=== PATIENT | male | born 1970 | race Caucasian/White ===

== ENCOUNTER 2023-08-20 12:23 | Emergency (ER) | payer MEDICARE, MEDICAID, SELFPAY | END 2023-08-20 14:09 | disposition left against medical advice (07) | LOC: HO.ED 14:02 | PROVIDERS: Emergency Provider Emergency Medicine; PCP Family Medicine | DX: K59.00 Constipation, unspecified (principal); Z53.21 Procedure and treatment not carried out due to patient leaving prior to being seen by health care provider ==

== ENCOUNTER 2024-02-14 17:24 | Emergency (ER) | payer MEDICARE, MEDICAID, SELFPAY ==
--- NOTE | 2024-02-14 17:33 | ED.GENADULT ---
HPI - General Adult General Chief complaint: General Medical Stated complaint: reaction to vitamin pill? dizzy Time Seen by Provider: 02/14/24 17:31 Source: patient and EMS Mode of arrival: EMS Limitations: no limitations History of Present Illness ED Provider: Ofelia Chaudhry PA-C HPI narrative: Patient is a 53 year old assigned male at with a history of vitamin D deficiency presenting to the emergency department today with pain his throat after taking a vitamin D supplement. Patient states that he was prescribed vitamin D and when he attempted to take it, it burned his throat going down. Patient denies any dizziness, lightheadedness, abdominal pain, nausea, vomiting, fever, chills, blurry vision, double vision, loss of vision, chest pain, difficulty breathing, shortness of breath, back pain, night sweats, pain with urination, increased urinary frequency, increased urinary urgency, blood in his urine or stool, syncope or a near syncopal episode, recent trauma or falls, bowel incontinence, bladder incontinence, or any other complaints at this time. Relieving factors: none Exacerbating factors: none Associated symptoms: denies other symptoms Treatments prior to arrival: none Related Data Allergies Allergy/AdvReac Type Severity Reaction Status Date / Time No Known Allergies Allergy Verified 02/14/24 17:41 Review of Systems Constitutional: Constitutional: Reports no additional constitutional complaints, Denies chills, Denies fever(s) and Denies night sweats Eyes: Eyes: Reports no additional eye complaints, Denies blurry vision, Denies change in vision, Denies diplopia, Denies eye discharge, Denies loss of vision and Denies eye pain ENT: Denies dizziness Comments: throat pain Cardiovascular: Cardiovascular: Reports no additional cardiovascular complaints, Denies chest pain, Denies lightheadedness, Denies Loss of Consciousness and Denies dyspnea Respiratory: Respiratory: Reports no additional respiratory complaints and Denies dyspnea Gastrointestinal: Gastrointestinal: Reports no additional gastrointestinal complaints, Denies abdominal pain, Denies melena, Denies hematochezia, Denies change in bowel habits and Denies change in stool character Genitourinary: Genitourinary: Reports no additional male genitourinary complaints, Denies hematuria, Denies oliguria, Denies difficulty urinating, Denies dysuria, Denies urinary frequency, Denies urinary hesitancy, Denies urinary incontinence and Denies urinary urgency Musculoskeletal: Musculoskeletal: Reports no additional musculoskeletal complaints, Denies numbness and Denies tingling Neurologic: Denies dizziness, Denies loss of vision, Denies numbness and Denies tingling Psychiatric: Psychiatric: Reports no additional psychiatric complaints Endocrine: Endocrine: Reports no additional endocrine complaints Hematologic/Lymphatic: Hematologic/Lymphatic: Reports no additional hematologic/lymphatic complaints Allergic/Immunologic: Allergic/Immunologic: Reports no additional allergic/immunologic complaints PMFSH Past Medical History Attestation statement: The following information was validated with the patient. Source: old records reviewed and nursing notes reviewed Social History Social History Advance Directives: No Advance Directives Information Provided: No Physical Exam ED Vital Signs: Vital Signs - 24 hr 02/14/24 17:36 Temperature 98.9 F Pulse Rate 85 Respiratory Rate 20 Blood Pressure 143/84 H Pulse Oximetry 98 Oxygen Delivery Method Room Air BMI result Body Mass Index 32.9 Const General: cooperative, no acute distress, alert and awake Nutritional Appearance: well nourished Orientation/consciousness: patient oriented x3 Limitations: no limitations HENMT Head: Yes normal to inspection and Yes atraumatic Ears: hearing grossly normal bilaterally and external ears normal General nose exam: Normal external nose present, no nasal discharge noted and no epistaxis Face and sinus: Yes normal facial exam, No abrasion and No laceration Mouth: Normal oral and palatal mucosa present, no drooling and no muffled voice Eyes General: appearance normal, both eyes and all related structures Periorbital: periorbital findings normal Eyelids: Yes eyelids normal Conjunctivae: conjunctivae normal Pupils: Equal, round and reactive pupils present EOM: EOMs intact bilaterally Neck Neck: Yes normal visual inspection, Yes full ROM and Yes no lymphadenopathy Chest Chest palpation & inspection: normal inspection of the chest Resp Effort & Inspection: normal respiratory effort and able to speak in complete sentences GI Inspection: Yes normal to inspection Neuro General: patient oriented x3 and moves all extremities Cranial nerves: Yes Equal, round and reactive pupils present Cognition (Neuro): normal cognition Extrem General: Yes normal to inspection, Yes full ROM and Yes capillary refill normal Psych Appearance: grossly normal Mental Status: mental status grossly normal Affect: normal affect Attitude: cooperative Thought process: Normal thought process present Thought content: Normal thought content present Insight: Good insight present (Psych) Medications Administered Discontinued Medications Generic Name Dose Route Start Last Admin Trade Name Corey PRN Reason Stop Dose Admin Al Hydroxide/Mg Hydroxide 15 ml 02/14/24 17:39 02/14/24 18:06 Magnesium Hydrox/Alum Hydrox 30 Ml Oral.Susp PO 02/14/24 17:40 15 ml ONCE ONE Administration Pantoprazole Sodium 40 mg 02/14/24 17:39 02/14/24 18:07 Pantoprazole Sodium 40 Mg/10 Ml Vial IVPUSH 02/14/24 17:40 40 mg ONCE ONE Administration Medical Decision Making Medical Decision Making [facility] Narrative: Patient is a 53 year old assigned male at with a history of vitamin D deficiency presenting to the emergency department today with throat pain after taking a vitamin D supplement. Patient's physical exam was unremarkable. Patient's blood work showed a sodium of 126 but was otherwise unremarkable. I explained my physical exam findings as well as all test results to the patient. I answered all questions asked by the patient. Patient confirmed that he does drink a lot of water and nothing else. I explained to the patient that he needs to start replacing some of his water with either water containing electrolytes or an electrolyte containing beverage. I stressed the importance of the patient taking his medication as directed (either prescribed or as the over the counter packaging recommends). I stressed the importance of the patient following up with his primary care provider. I stressed the importance of the patient returning to the emergency department immediately if his symptoms were to worsen or if he were to develop any dizziness, shortness of breath, difficulty breathing, chest pain, blurry vision, loss of vision, nausea, vomiting, abdominal pain, fever, chills, back pain, or any other complaints. Patient verbalized agreement and understanding with this treatment plan and discharge. Differential Diagnosis Differential Diagnoses: The differential diagnosis associated with the presentation includes Pill esophagitis Hyponatremia Admission/Observation Consideration of admission/observation: Escalation of care including admission/observation considered Patient would have been admitted to the hospital had his work up had any findings where hospital admission was appropriate and his clinical presentation warranted hospital admission. Lab Data [facility] Lab Attestation statement: I reviewed the patient's lab results. My interpretation of these results are in the [facility] Rationale portion of this note. 02/14/24 18:22 02/14/24 18:22 Labs: Lab Results 02/14/24 Range/Units 18:22 WBC 9.1 (4.8-10.8) X10*3/uL RBC 4.56 L (4.60-5.80) X10*6/uL Hgb 12.7 L (14.0-18.0) g/dl Hct 36.3 L (42.0-52.0) % MCV 79.6 L (80.0-98.0) fL MCH 27.9 (27.0-33.0) pg MCHC 35.0 (31.0-36.0) g/dl RDW 13.6 (11.0-16.0) % Plt Count 381 (160-400) X10*3/uL MPV 8.8 L (9.4-12.4) fL Immature Gran % (Auto) 0.3 (0.0-0.4) % Neut % (Auto) 56.9 (45-73) % Lymph % (Auto) 33.6 (20-40) % [place] % (Auto) 7.5 (2-11) % Eos % (Auto) 1.1 (0-4) % Baso % (Auto) 0.6 (0-2) % Lymph # (Auto) 3.1 (1.2-4.9) X10*3/uL [place] # (Auto) 0.7 (0.1-1.2) X10*3/uL Eos # (Auto) 0.1 (0.0-0.4) X10*3/uL Baso # (Auto) 0.1 (0.0-0.2) X10*3/uL Abs Immat Gran (auto) 0.03 (0.00-0.03) X10*3/uL Absolute Neuts (auto) 5.2 (2.0-8.3) x10*3/uL Absolute Nucleated RBC 0.000 (0.0-0.012) X10*3/uL Nucleated RBC % (auto) 0.0 (0.0-0.2) /100WBC Sodium 126 L (135-145) mmol/L Potassium 3.8 (3.3-5.1) mmol/L Chloride 94 L (96-108) mmol/L Carbon Dioxide 25 (22-29) mmol/L Anion Gap 11 L (12-20) BUN 5 L (9-16) mg/dL Creatinine 0.74 (0.5-1.4) mg/dL Estim Creat Clear Calc 108.0 Estimated GFR > 60 Random Glucose 102 (60-115) mg/dL Calcium 10.1 (8.4-10.2) mg/dL Magnesium 1.7 (1.6-2.6) mg/dL Total Bilirubin 0.4 (0.0-1.0) mg/dL AST 27 (5-37) U/L ALT 29 (0-40) U/L Alkaline Phosphatase 69 (39-117) U/L Total Protein 7.2 (6.5-8.0) g/dL Albumin 4.3 (3.5-5.0) g/dL Independent Historian Clinical information obtained from an independent historian. History obtained from or confirmed by: EMS (EMS provided additional history and confirmed the history provided by the patient.) Discharge Plan Discharge Clinical Impression: Pill esophagitis, Acute hyponatremia Patient Disposition: Home, Self-Care Instructions: Hyponatremia (ED), Liquids and Hydration for Athletes (ED), Esophagitis (ED) Additional Instructions: You should follow up with your primary care provider and repeat your sodium level. Remember our discussion about splitting your water intake with electrolyte containing fluids. Follow up with your primary care provider. Return to the emergency department immediately if your symptoms worsen or if you develop any dizziness, shortness of breath, difficulty breathing, chest pain, blurry vision, loss of vision, nausea, vomiting, abdominal pain, fever, chills, back pain, or any other complaints. Referrals: Des Saab MD [Primary Care Provider] - Print Language: Egyptian
[2024-02-14 17:35] VITALS: BP 160/92; PULSE 80; O2SAT 99
[2024-02-14 17:36] VITALS: BP 143/84; PULSE 85; RESP 20; TEMP 37.2; O2SAT 98; BMI 32.9
[2024-02-14] MEDS: Magnesium Hydrox/Alum Hydrox 30 ML ORAL.SUSP 15 ML PO (18:06)
[2024-02-14] MEDS: Pantoprazole Sodium 40 MG/10 ML VIAL IVPUSH (18:07)
[2024-02-14 18:27] LABS: MANUAL DIFF FLAG NO
[2024-02-14 18:28] LABS: Basophils Absolute Auto 0.1 X10*3/uL (0.0-0.2); Basophils Percent Auto 0.6 % (0-2); Eosinophils Absolute Auto 0.1 X10*3/uL (0.0-0.4); Eosinophils Percent Auto 1.1 % (0-4); Hematocrit 36.3 % (42.0-52.0); Hemoglobin 12.7 g/dl (14.0-18.0); Imm Gran Abs Auto 0.03 X10*3/uL (0.00-0.03); Imm Gran Pct Auto 0.3 % (0.0-0.4); Lymphocytes Absolute Auto 3.1 X10*3/uL (1.2-4.9); Lymphocytes Percent Auto 33.6 % (20-40); Mean Corpuscular Hemoglobin 27.9 pg (27.0-33.0); Mean Corpuscular Volume 79.6 fL (80.0-98.0); Mean Platelet Volume 8.8 fL (9.4-12.4); Monocytes Absolute Auto 0.7 X10*3/uL (0.1-1.2); Monocytes Percent Auto 7.5 % (2-11); Neutrophils Absolute Auto 5.2 x10*3/uL (2.0-8.3); Neutrophils Percent Auto 56.9 % (45-73); Platelet Count 381 X10*3/uL (160-400); Red Blood Count 4.56 X10*6/uL (4.60-5.80); Red Cell Distribution Width 13.6 % (11.0-16.0); White Blood Count 9.1 X10*3/uL (4.8-10.8)
[2024-02-14 18:43] LABS: Alanine Aminotransferase 29 U/L (0-40); Albumin Level 4.3 g/dL (3.5-5.0); Alkaline Phosphatase 69 U/L (39-117); Anion Gap 11 (12-20); Aspartate Amino Transferase 27 U/L (5-37); Bilirubin Total 0.4 mg/dL (0.0-1.0); Blood Urea Nitrogen 5 mg/dL (9-16); Calcium 10.1 mg/dL (8.4-10.2); Carbon Dioxide 25 mmol/L (22-29); Chloride 94 mmol/L (96-108); Estimated Glomerular Filt Rate > 60; Glucose Random 102 mg/dL (60-115); Magnesium 1.7 mg/dL (1.6-2.6); Potassium 3.8 mmol/L (3.3-5.1); Sodium 126 mmol/L (135-145); Total Protein 7.2 g/dL (6.5-8.0)
[2024-02-14] MEDS: 0.9 % Sodium Chloride 1,000 ML 999 ML IV (19:30)
--- NOTE | 2024-02-14 21:28 | PC.NURSE ---
pt right arm 20g blown iv. new iv to left ac 20g and ivf infusing.
[2024-02-14 22:32] VITALS: BP 143/84; PULSE 85; RESP 20; TEMP 37.2; O2SAT 98
== END 2024-02-14 22:33 | disposition home or self-care (01) ==
PROVIDERS: Physician Assistant Medical; Emergency Provider Emergency Medicine; PCP Family Medicine
DX: K20.80 Other esophagitis without bleeding (principal); E87.1 Hypo-osmolality and hyponatremia; E55.9 Vitamin D deficiency, unspecified
CPT/HCPCS: 36415; 80053; 83735; 85025; 96374; 99284; J2470

== ENCOUNTER 2024-05-28 19:02 | Inpatient (IN) | payer MEDICARE, MEDICAID, SELFPAY ==
[2024-05-28 19:08] VITALS: BP 141/81; PULSE 113; O2SAT 95
[2024-05-28 19:39] VITALS: BP 157/94; PULSE 107; RESP 18; TEMP 36.8; O2SAT 98; BMI 32.9
[2024-05-28 20:01] LABS: MANUAL DIFF FLAG NO
[2024-05-28 20:07] LABS: Basophils Percent Auto 0.5 % (0-2); Eosinophils Absolute Auto 0.1 X10*3/uL (0.0-0.4); Eosinophils Percent Auto 1.8 % (0-4); Hematocrit 41.6 % (42.0-52.0); Hemoglobin 13.8 g/dl (14.0-18.0); Imm Gran Abs Auto 0.02 X10*3/uL (0.00-0.03); Imm Gran Pct Auto 0.3 % (0.0-0.4); Lymphocytes Absolute Auto 3.1 X10*3/uL (1.2-4.9); Lymphocytes Percent Auto 39.7 % (20-40); Mean Corpuscular HGB Conc 33.2 g/dl (31.0-36.0); Mean Corpuscular Hemoglobin 27.6 pg (27.0-33.0); Mean Corpuscular Volume 83.2 fL (80.0-98.0); Mean Platelet Volume 9.4 fL (9.4-12.4); Monocytes Absolute Auto 0.6 X10*3/uL (0.1-1.2); Monocytes Percent Auto 7.9 % (2-11); Neutrophils Absolute Auto 3.9 x10*3/uL (2.0-8.3); Neutrophils Percent Auto 49.8 % (45-73); Platelet Count 361 X10*3/uL (160-400); Red Cell Distribution Width 13.2 % (11.0-16.0); White Blood Count 7.9 X10*3/uL (4.8-10.8)
[2024-05-28 20:15] LABS: Amphetamine Screen Urine Not Detected (Not Detect); Barbiturates, Urine Not Detected (Not Detect); Benzodiazepines Screen Urine Not Detected (Not Detect); Buprenorphine Scr Not Detected (Not Detect); Cannabinoid Screen Urine Not Detected (Not Detect); Cocaine Screen Urine Not Detected (Not Detect); Fentanyl, urine Not Detected (Not Detect); Methadone Screen, Urine Not Detected (Not Detect); Opiate Screen Urine Not Detected (Not Detect); Oxycodone Screen Urine Not Detected (Not Detect); Phencyclidine Screen Urine Not Detected (Not Detect)
[2024-05-28 20:24] LABS: Ethanol < 10 mg/dL
[2024-05-28 20:28] LABS: Acetaminophen LAB < 3 mcg/mL (<30); Salicylate < 5.0 mg/dL (15-30)
[2024-05-28 20:34] LABS: Alanine Aminotransferase 36 U/L (0-40); Albumin Level 4.7 g/dL (3.5-5.0); Alkaline Phosphatase 79 U/L (39-117); Aspartate Amino Transferase 32 U/L (5-37); Bilirubin Total 0.3 mg/dL (0.0-1.0); Blood Urea Nitrogen 13 mg/dL (9-16); Creatinine Clr Calc Pharmacy 91.9; Estimated Glomerular Filt Rate > 60; Glucose Random 90 mg/dL (60-115); Total Protein 7.9 g/dL (6.5-8.0)
[2024-05-28 20:36] LABS: Anion Gap 15 (12-20); Carbon Dioxide 26 mmol/L (22-29); Chloride 100 mmol/L (96-108); Potassium 3.9 mmol/L (3.3-5.1); Sodium 137 mmol/L (135-145)
[2024-05-28 20:40] LABS: Influenza A PCR NEGATIVE (Negative); Influenza B PCR NEGATIVE (Negative); Resp Syncy Virus RNA Qual PCR NEGATIVE (Negative); SARS COV2 PCR INHOUSE NEGATIVE (Negative)
[2024-05-29] MEDS: risperiDONE 1 MG TABLET PO ×3 (01:46→20:48)
[2024-05-29] MEDS: Melatonin 3 MG TABLET PO ×2 (01:46→20:48)
--- NOTE | 2024-05-29 04:55 | ED_ITS ---
HPI - General Adult General Chief complaint: Psychiatric Symptoms Stated complaint: section 12, hi pt is calm and cooperative Time Seen by Provider: 05/28/24 19:27 Source: patient Limitations: no limitations History of Present Illness ED Provider: Liv Rodriguez PA-C HPI narrative: 53-year-old male with a history of schizophrenia with paranoid delusion presents via section 12 with a HI. Patient was having a session with his therapist, he made it, that he was ?cruising for shooting?. The therapist in turn called the police department. The patient was also verbalizing paranoid thoughts it was neighbors were following him. Patient denies SI. Related Data Home Medications ?Medication ?Instructions ?Recorded ?Confirmed cholecalciferol (vitamin D3) 50 50 mcg PO DAILY 05/28/24 05/28/24 mcg (2,000 unit) capsule melatonin 3 mg tablet 3 mg PO BEDTIME 05/28/24 05/28/24 risperidone 1 mg tablet 1 mg PO BID 05/28/24 05/28/24 Allergies Allergy/AdvReac Type Severity Reaction Status Date / Time No Known Allergies Allergy Verified 05/28/24 19:45 Review of Systems 2 Review of Systems: Yes all other systems are reviewed and are negative Constitutional: Constitutional: Denies fatigue and Denies fever(s) Cardiovascular: Cardiovascular: Denies chest pain and Denies dyspnea Respiratory: Respiratory: Denies cough and Denies dyspnea Gastrointestinal: Gastrointestinal: Denies abdominal pain Endocrine: Endocrine: Denies fatigue PMFSH Past Medical History Attestation statement: The following information was validated with the patient. Social History Social History Household Members: None Housing: Condominium Do you presently have visiting nurse or other home services: No Alcohol intake: never Patient Tobacco Use Status: Never used Tobacco Use of substances other than those prescribed or required for medical reasons: No Currently Displaying Signs/Symptoms of Drug Intoxication Withdrawal: No Have you been hit, kicked, punched, or otherwise hurt by someone within the past year? If so, by whom?: No Do you feel safe in your current relationship?: No Current Relationship Is there a partner from a previous relationship who is making you feel unsafe now?: No Are you made to feel afraid or neglected: No Advance Directives: No Advance Directives Information Provided: No Do you have thoughts of harming others: None Do you have a plan to hurt others: No Plan Recently lost weight without trying: No Eating poorly because of decreased appetite: No Nutrition Risks: No Nutritional Risk Poor oral hygiene: No Physical Exam ED Vital Signs: Vital Signs - 24 hr 05/28/24 19:39 Temperature 98.2 F Pulse Rate 107 H Respiratory Rate 18 Blood Pressure 157/94 H Pulse Oximetry 98 Oxygen Delivery Method Room Air BMI result Body Mass Index 32.9 Const Other: Alert Orientation/consciousness: patient oriented x3 Resp Effort & Inspection: normal respiratory effort Cardio Other: Normal peripheral perfusion Skin Other: Warm dry no rash Neuro General: patient oriented x3, gait normal, no focal motor deficits and CN's II- XI intact bilaterally Psych Other: Cooperative here in the emergency room Course Reevaluation(s) Reevaluation #1: Time: 05:00 Date: 05/29/24 Provider: ILYA Suárez Patient in physician observation for psychiatric evaluation.? No acute events reported overnight. No current complaints. VS stable.? Patient is in bed search status/pending CARE team evaluation. Will continue to monitor. Reevaluation #2: Time: 20:35 Date: 05/30/24 Provider: Nikita Polanco MD Physician observation ended on 05/29/2024 at 12:18 hours. the patient was evaluated by the care team and was felt that the patient would benefit from inpatient care. The patient was admitted to the [facility] [place] psychiatric service by nurse practitioner Ese Dawn for further in-patient treatment. Medications Administered Generic Name Dose Route Start Last Admin Trade Name Freq PRN Reason Stop Dose Admin Magnesium Hydroxide 30 ml 05/29/24 15:51 05/30/24 08:39 Milk Of Magnesia 30 Ml Oral.Susp PO 30 ml DAILY PRN Administration Constipation Melatonin 3 mg 05/29/24 01:15 05/29/24 20:48 Melatonin 3 Mg Tablet PO 3 mg BEDTIME JOLENE Administration Nicotine 21 mg 05/30/24 09:00 05/30/24 09:54 Nicotine 21 Mg Patch.Td24 TRANSDERMA Not Given DAILY JOLENE Risperidone 2 mg 05/30/24 21:00 05/30/24 20:18 Risperidone 2 Mg Tablet PO 2 mg BEDTIME JOLENE Administration Vitamin D 50 mcg 05/29/24 09:00 05/30/24 08:39 Cholecalciferol (Vitamin D3) 25 Mcg Tablet PO 50 mcg DAILY JOLENE Administration Discontinued Medications Generic Name Dose Route Start Last Admin Trade Name Corey PRN Reason Stop Dose Admin Lorazepam 2 mg 05/29/24 11:55 05/29/24 12:00 Lorazepam 1 Mg Tablet PO 05/29/24 11:56 2 mg ONCE STA Administration Risperidone 1 mg 05/29/24 01:15 05/30/24 08:38 Risperidone 1 Mg Tablet PO 1 mg BID JOLENE Administration Medical Decision Making Medical Decision Making MDM Narrative: 53-year-old male with a history of schizophrenia with paranoid delusion presents via section 12 with a HI. Patient was having a session with his therapist, he made it, that he was ?cruising for shooting?. The therapist in turn called the police department. The patient was also verbalizing paranoid thoughts it was neighbors were following him. Patient denies SI. Problem: Psychiatric illness History: Per patient I have considered the following differential diagnoses: SI, HI, decompensated psychiatric illness, drug/alcohol intoxication Plan: Screening labs including serum ethanol and U tox were obtained. I spoke with the member of the care team, they are unable to obtain collateral information at this time, the patient will be held over for further assessment in the morning. I have independently reviewed the following tests: Labs: No leukocytosis, not anemic, no electrolyte abnormality noted, U tox negative, ethanol negative Lab Data 05/28/24 19:53 05/29/24 18:32 Labs: Lab Results 05/28/24 05/28/24 Range/Units 19:52 19:53 WBC 7.9 (4.8-10.8) X10*3/uL RBC 5.00 (4.60-5.80) X10*6/uL Hgb 13.8 L (14.0-18.0) g/dl Hct 41.6 L (42.0-52.0) % MCV 83.2 (80.0-98.0) fL MCH 27.6 (27.0-33.0) pg MCHC 33.2 (31.0-36.0) g/dl RDW 13.2 (11.0-16.0) % Plt Count 361 (160-400) X10*3/uL MPV 9.4 (9.4-12.4) fL Immature Gran % (Auto) 0.3 (0.0-0.4) % Neut % (Auto) 49.8 (45-73) % Lymph % (Auto) 39.7 (20-40) % [place] % (Auto) 7.9 (2-11) % Eos % (Auto) 1.8 (0-4) % Baso % (Auto) 0.5 (0-2) % Lymph # (Auto) 3.1 (1.2-4.9) X10*3/uL [place] # (Auto) 0.6 (0.1-1.2) X10*3/uL Eos # (Auto) 0.1 (0.0-0.4) X10*3/uL Baso # (Auto) 0.0 (0.0-0.2) X10*3/uL Abs Immat Gran (auto) 0.02 (0.00-0.03) X10*3/uL Absolute Neuts (auto) 3.9 (2.0-8.3) x10*3/uL Absolute Nucleated RBC 0.000 (0.0-0.012) X10*3/uL Nucleated RBC % (auto) 0.0 (0.0-0.2) /100WBC Sodium 137 (135-145) mmol/L Potassium 3.9 (3.3-5.1) mmol/L Chloride 100 (96-108) mmol/L Carbon Dioxide 26 (22-29) mmol/L Anion Gap 15 (12-20) BUN 13 (9-16) mg/dL Creatinine 0.87 (0.5-1.4) mg/dL Estim Creat Clear Calc 91.9 Estimated GFR > 60 Random Glucose 90 (60-115) mg/dL Calcium 11.0 H D (8.4-10.2) mg/dL Magnesium 2.0 (1.6-2.6) mg/dL Total Bilirubin 0.3 (0.0-1.0) mg/dL AST 32 (5-37) U/L ALT 36 (0-40) U/L Alkaline Phosphatase 79 (39-117) U/L Total Protein 7.9 (6.5-8.0) g/dL Albumin 4.7 (3.5-5.0) g/dL Salicylates < 5.0 L (15-30) mg/dL Urine Opiates Screen Not Detected (Not Detect) Ur Buprenorphine Scrn Not Detected (Not Detect) ng/mL Ur Oxycodone Screen Not Detected (Not Detect) ng/mL Urine Methadone Screen Not Detected (Not Detect) ng/mL Urine Fentanyl Screen Not Detected (Not Detect) Acetaminophen < 3 (<30) mcg/mL Ur Barbiturates Screen Not Detected (Not Detect) Ur Phencyclidine Scrn Not Detected (Not Detect) Ur Amphetamines Screen Not Detected (Not Detect) U Benzodiazepines Scrn Not Detected (Not Detect) Urine Cocaine Screen Not Detected (Not Detect) U Marijuana (THC) Screen Not Detected (Not Detect) Ethyl Alcohol < 10 mg/dL Influenza Type A (PCR) NEGATIVE (Negative) Influenza Type B (PCR) NEGATIVE (Negative) RSV RNA Qual (PCR) NEGATIVE (Negative) SARS-CoV-2 RNA (RT-PCR) NEGATIVE (Negative) Discharge Plan Discharge Clinical Impression: Homicidal ideation Patient Disposition: Admitted As Inpatient Interventions: Admission Worksheet (ED) Last Done: 05/29/24 14:18 Discharge Date/Time: 05/29/24 14:49
[2024-05-29 05:12] VITALS: BP 114/82; PULSE 71; RESP 16; TEMP 36.3; O2SAT 98
--- NOTE | 2024-05-29 06:17 | MHC.CARE ---
Addendum entered by ALFONSO Payan 05/29/24 06:53: OP therapist contact information is as follows: Salvador Burgess: [phone] Original Note: Pt presented to [facility] on a section 12 issued by [facility] Co response at the request of pt?s OP therapist. Per [facility] co response, pt endorsed having thoughts do harm others, specifically his neighbor, and made statements alluding to wanting to harm his neighbor utilizing a fire arm and when asked if he had access to a firearm at this time he was unable to confirm or deny. ?Per [facility] documentation, co response, accompanied by the [place] police, attempted to make contact with the pt due to reported concern from pts current outpatient therapist, however initially were unsuccessful.?[place] [employer] was contacted for further information and dispatch noted that pt made statements regarding wanting to use a firearm to harm his neighbor and although did not answer the door on the first attempt to make contact with him he did open the door for the police when they went back to the apartment for a second time. Dispatch noted that he was calm and cooperative with PD and was sent to [facility] for further evaluation without incident. Dispatch noted that prior to today that [place]ilan had contact with him in February when he was sectioned to [facility] ED. She stated that to their knowledge he does not have access to firearms within the home and they have not have much involvement with him in the past.? Pt spoke briefly with Care Team while waiting to be seen by the medical attending and fully medically cleared and remained in behavioral control and cooperative. Pt reported ongoing issues with his neighbor and appeared paranoid at times and also presented with a delusional thought process. He reported that he believes someone put speakers in the floors and ceilings and would also purposely hack his computer to make it difficult for pt to work. He reported that he can hear his neighbors voice though the light fixtures and believes that they are listening into his therapy sessions at this time. Pt reported vaguely that he has seen his therapist for several years and stated he utilizes Dr. King from [facility] as a medication prescriber. ?He reported that he is also supported by [facility] and stated that he has [facility] ACCS for additional wrap around services at this time. He indicated that his current ACCS worker is on vacation and indicated ?someone else has been filling in while she is away.?Due to pts altered mental status at times he appeared to be a poor historian however he was able to be redirected and denied having any access to firearms at this time and stated: i'm actually very against stuff like that. Pt noted that he did not take his medication this morning and indicated that he decided himself to take the an additional dose of the medication to make it more effective. ?It is to be noted he disclosed to ed staff upon arrival that his current prescribed medications are to be taken on an as needed basis therefore there is concern for medication noncompliance as evidence of his disorganized thought process.? A full care team assessment will occur secondary to being seen and cleared medically and further follow up will occur as needed moving forwards.?
[2024-05-29] MEDS: Cholecalciferol (Vitamin D3) 25 MCG TABLET 50 MCG PO (07:28)
--- NOTE | 2024-05-29 11:03 | ECG_ITS ---
Test Reason : R/O PROLONGED QT Blood Pressure : */* mmHG Vent. Rate : 78 BPM Atrial Rate : 78 BPM P-R Int : 158 ms QRS Dur : 92 ms QT Int : 338 ms P-R-T Axes : 62 87 48 degrees QTcB Int : 385 ms Normal sinus rhythm Normal ECG No previous ECGs available Referred By: Liv Rodriguez Electronically Signed By: DESI BARR MD
[2024-05-29] MEDS: LORazepam 1 MG TABLET 2 MG PO (12:00)
--- NOTE | 2024-05-29 17:22 | PC.ADMIT ---
Riley is a 53 y/o male that was admitted to [facility]? at 1445 from the Pod on CV for treatment of delusional d/o.?Pt then signed a 3day. Precipitants of admission include increased paranoia and thoughts of HI towards his neighbors. Per Crisis evaluation pt believes that his neighbors are poisoning him and poison is coming through the vents in the ceiling. Pt verbalized his want to cause harm towards the neighbors. He believes that voices are coming out of the lights.? Pt currently lives alone in an apartment.? Pt stated ?I am here because of my neighbors. They are sending me things through the vents. It smells like ammonia. Sometimes there is dust, the dust is covering me. I am still covered in this white paste right now. They have access into my briceno.? ?I live alone and I hear voices when I?m there which is concerning because I live alone.? Pt was calm and cooperative.? Affect is blunted.? Pt reported feeling ?confused? and unable to recall TW name after being told multiple times. Stated from the ?Ativan?.? Pt reported thought process is slow.? Pt denied SI or HI at this time. Pt reported that they would be able to come to a staff member if thoughts occurred.? Poor sleep and appetite. No recent weight loss.? Tox Screen negative. Pt denied etoh, substance or tobacco use.? No physical complaints. Hx of emotional trauma but did not disclose further.? Hx of IPLOC at [facility] in February 2024. Current [facility] provider and therapist, self reported takes medication 5 days a week .? Pt was placed on 15 checks for safety.? Skin check complete, unremarkable.
[2024-05-29 17:49] VITALS: BP 138/80; PULSE 104; RESP 16; TEMP 36.6; O2SAT 99; BMI 32.3
[2024-05-29 19:40] VITALS: BP 118/72; PULSE 99; RESP 16; TEMP 36.6; O2SAT 100
[2024-05-29 19:47] LABS: Alanine Aminotransferase 34 U/L (0-40); Albumin Level 4.6 g/dL (3.5-5.0); Alkaline Phosphatase 76 U/L (39-117); Anion Gap 12 (12-20); Aspartate Amino Transferase 25 U/L (5-37); Bilirubin Total 0.3 mg/dL (0.0-1.0); Blood Urea Nitrogen 10 mg/dL (9-16); Calcium 11.2 mg/dL (8.4-10.2); Carbon Dioxide 29 mmol/L (22-29); Chloride 102 mmol/L (96-108); Creatinine Clr Calc Pharmacy 90.9; Estimated Glomerular Filt Rate > 60; Glucose Random 115 mg/dL (60-115); Potassium 4.1 mmol/L (3.3-5.1); Sodium 139 mmol/L (135-145); Total Protein 7.9 g/dL (6.5-8.0)
[2024-05-30 08:00] VITALS: BP 128/88; PULSE 85; RESP 14; TEMP 36.9; O2SAT 98
[2024-05-30] MEDS: risperiDONE 1 MG TABLET PO (08:38)
[2024-05-30] MEDS: Cholecalciferol (Vitamin D3) 25 MCG TABLET 50 MCG PO (08:39)
[2024-05-30] MEDS: Milk of Magnesia 30 ML ORAL.SUSP PO (08:39)
--- NOTE | 2024-05-30 10:46 | P.HPPS_ITS ---
HPI Date of Service: 05/30/24 Chief Complaint: crisis Sources of Information: patient interviewed, chart reviewed and crisis/core team assessment reviewed HPI Subjective Notes: Ruiz Warning, Conditional Voluntary and 3 Day Narrative: Mr. Jewell is a 53 year-old male with hx of schizophrenia who was brought via EMS on sect 12a from therapist office from [facility] after he reported homicidal ideation towards neighbors who he believes have been talking to him through vents and outlets of his apartment, poisoning the air with chemical substances. In the ED, his utox was negative. On the unit, pt presents as somewhat guarded. He reports he has been harassed by his neighbors for at least 2 years but it has been going on for several more years. He reports neighbor upstairs and the neighbor diagonal from him are sending him messages through the TV. He reports he also hears voices coming from light fixtures and outlets. He reports he has never seen neighbors coming to him and threaten him. He also notes he does not know why neighbors would try to harm him. He reports he works from home and is constantly hearing voices. He reports a month ago he was so desperate that he felt suicidal but denied any plan or intent to harm himself. He reports recently he worries that neighbors are trying to harm him. He reported to the nurse on admission that he had a white power on him which nurse could not see but he insisted was all over his body. He reports he is getting tired and thought of taking matter into his own hand, but clarifies that his plan is to contact the police. He reports he stopped talking with family members as they do not believe him. He reports he does not trust many people but sees his outpatient therapist, Salvador Burgess twice a week for several years. He reports he sees psychiatrist, Dr Lincoln King. He report she currently takes risperidone but has not agree to increase the dose as he worries about side effects. He reports poor sleep. He reports he is not able to shower at home because it is in the bathroom where he suspects poison is coming out of the vents and showers. He reports hear in the hospital he has also heard voices of neighbors and worries that they may try to get him here. He denies hx of suicide attempts. He also denies hx of violence towards others. Past Psychiatric History: Inpt: j[facility]ie 02/2024 OP: [facility] Dr. Lincoln Gaming, therapist Salvador Burgess. Past medication trials: seroquel, abilify, risperidone No hx of suicide attempts. Medical Evaluation [facility] Family History: denies Social History: Pt was born in [place]. He has never nor he has children. He completed BA in psychology and MA in computer science. 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 He has siblings with whom he has limited contact now. Substance History: denies Trauma History: none reported Diagnostics Vital Signs (24Hr): Vital Signs - 24 hr 05/29/24 17:49 05/29/24 19:40 05/30/24 08:00 Temperature 97.9 F 97.8 F 98.5 F Pulse Rate 104 H 99 85 Respiratory Rate 16 16 14 Blood Pressure 138/80 118/72 128/88 Pulse Oximetry 99 100 98 Oxygen Delivery Method Room Air Room Air Room Air BMI result Body Mass Index 32.3 Labs 05/28/24 19:53 05/29/24 18:32 Labs: Laboratory Results - last 48 hr 05/28/24 05/28/24 05/29/24 19:52 19:53 18:32 WBC 7.9 RBC 5.00 Hgb 13.8 L Hct 41.6 L MCV 83.2 MCH 27.6 MCHC 33.2 RDW 13.2 Plt Count 361 MPV 9.4 Immature Gran % (Auto) 0.3 Neut % (Auto) 49.8 Lymph % (Auto) 39.7 Carter % (Auto) 7.9 Eos % (Auto) 1.8 Baso % (Auto) 0.5 Lymph # (Auto) 3.1 Carter # (Auto) 0.6 Eos # (Auto) 0.1 Baso # (Auto) 0.0 Abs Immat Gran (auto) 0.02 Absolute Neuts (auto) 3.9 Absolute Nucleated RBC 0.000 Nucleated RBC % (auto) 0.0 Sodium 137 139 Potassium 3.9 4.1 Chloride 100 102 Carbon Dioxide 26 29 Anion Gap 15 12 BUN 13 10 Creatinine 0.87 0.87 Estim Creat Clear Calc 91.9 90.9 Estimated GFR > 60 > 60 Random Glucose 90 115 Calcium 11.0 H D 11.2 H Magnesium 2.0 Total Bilirubin 0.3 0.3 AST 32 25 ALT 36 34 Alkaline Phosphatase 79 76 Total Protein 7.9 7.9 Albumin 4.7 4.6 Salicylates < 5.0 L Urine Opiates Screen Not Detected Ur Buprenorphine Scrn Not Detected Ur Oxycodone Screen Not Detected Urine Methadone Screen Not Detected Urine Fentanyl Screen Not Detected Acetaminophen < 3 Ur Barbiturates Screen Not Detected Ur Phencyclidine Scrn Not Detected Ur Amphetamines Screen Not Detected U Benzodiazepines Scrn Not Detected Urine Cocaine Screen Not Detected U Marijuana (THC) Screen Not Detected Ethyl Alcohol < 10 Influenza Type A (PCR) NEGATIVE Influenza Type B (PCR) NEGATIVE RSV RNA Qual (PCR) NEGATIVE SARS-CoV-2 RNA (RT-PCR) NEGATIVE Meds/Allergies Meds Home Medications ?Medication ?Instructions ?Recorded ?Confirmed ?Type cholecalciferol (vitamin D3) 50 50 mcg PO DAILY 05/28/24 05/28/24 History mcg (2,000 unit) capsule melatonin 3 mg tablet 3 mg PO BEDTIME 05/28/24 05/28/24 History risperidone 1 mg tablet 1 mg PO BID 05/28/24 05/28/24 History Allergies Allergies Allergy/AdvReac Type Severity Reaction Status Date / Time No Known Allergies Allergy Verified 05/28/24 19:45 Mental Status Exam Mental Status Exam Narrative: Appearance: wearing hospital gown, fair hygiene, in NAD Behavior: cooperative, initially guarded Psychomotor: no agitation or retardation noted Speech: clear, normal rate/rhythm/volume, spontaneous TP: linear TC: paranoid delusions Mood: better Affect: suspicious Si: denies HI: denies VH/AH: hearing voices of neighbors, sees things on skin and other in the environment which he interprets as poisoned even when others can't see them Delusions: paranoid/persecutory delusions Insight/judgment: poor x 2. Memory/cog: alert, oriented x 3. Assessment & Plan Assessment & Plan (1) Schizophrenia: Status: Acute Code(s): F20.9 - Schizophrenia, unspecified Plan Mr. Jewell is a 53 year-old male with hx of schizophrenia who was brought via EMS on sect 12a from jail therapist due to increased paranoid delusions and report of homicidal ideation towards neighbors who he believes have been trying to hurt him for at least two years but recently he also feels harassment is getting worse. Utox negative. We discussed risks, benefits and alternative tretment options. He agreed to increase risperidone to 1mg po daily and 2mg po qhs. We did discussed that given limited of medication trials, especially as abilify and seroquel are not most effective antipsychotic medications, to be open to try different one if risperidone at higher doses not effective. PLAN 1. Admit to M3, CV, 2 day, 15 minutes checks 2. increase risperidone 1mg po daily and 2mg po qhs. 3. obtain collateral information 4. aftercare planning Patient educated on: diagnosis and medication risk/benefits Reason for continued inpatient stay Substantial Risk for: harm to others and inability to function Statement Statement: I have reviewed the history and physical and performed a pertinent examination on my patient. No changes have occurred unless specified. If the History and Physical was not performed prior to admission, the Hospitalist's service will be consulted for completing the admission physical. Time Spent With Patient Time: Total time managing care of this patient today ____ minutes.
[2024-05-30 20:00] VITALS: BP 130/81; PULSE 96; RESP 16; TEMP 37.3; O2SAT 97
[2024-05-30] MEDS: risperiDONE 2 MG TABLET PO (20:18)
[2024-05-30] MEDS: Melatonin 3 MG TABLET PO (22:28)
[2024-05-31] MEDS: hydrOXYzine HCL 25 MG TABLET PO (03:50)
[2024-05-31 07:30] VITALS: BP 115/77; PULSE 81; RESP 14; TEMP 36.9; O2SAT 99
[2024-05-31] MEDS: Cholecalciferol (Vitamin D3) 25 MCG TABLET 50 MCG PO (09:46)
[2024-05-31] MEDS: risperiDONE 1 MG TABLET PO (09:47)
[2024-05-31 10:08] LABS: Cholesterol 208 mg/dL (<200); HDL Cholesterol 70 mg/dL (>40); LDL Cholesterol Calculated 124 mg/dL (<100); Triglycerides 71 mg/dL (<150)
[2024-05-31 10:56] LABS: Estimated Average Glucose 123 mg/dL; Hemoglobin A1C 144.8956 umol/L; Hemoglobin A1c % 5.9 % (<6.0); Total Hemoglobin (HGBA1C) 3498.1282 umol/L
[2024-05-31 20:00] VITALS: BP 139/91; PULSE 101; RESP 16; TEMP 36.9; O2SAT 96
[2024-05-31] MEDS: risperiDONE 2 MG TABLET PO (21:32)
--- NOTE | 2024-05-31 22:31 | P.PNPSI_ITS ---
Subjective Subjective Date of Service: 05/31/24 Reason For Visit: crisis Subjective Notes: Conditional Voluntary and 3 Day Interim History: pt slept most of the night. He reports he thinks risperidone may have perforated his brain. He is suspicious about the medication, especially new dose. He denies SI/HI. He reports he has to leave soon but think this is more related to increasingly getting more paranoid on the unit than actually feeling better. He agreed to continue medication at current dose. Review of Systems Review of Systems He reports headache. No SOB, NO chest pain. No constipation or diarrhea, nor abdominal pain. Yes all other systems are reviewed and are negative Constitutional: Denies fatigue and Denies fever(s) Cardiovascular: Denies chest pain and Denies dyspnea Respiratory: Denies cough and Denies dyspnea Gastrointestinal: Denies abdominal pain Endocrine: Denies fatigue Mental Status Exam Mental Status Exam Narrative: Appearance: wearing hospital gown, fair hygiene, in NAD Behavior: cooperative, initially guarded Psychomotor: no agitation or retardation noted Speech: clear, normal rate/rhythm/volume, spontaneous TP: linear TC: paranoid delusions Mood: better Affect: suspicious Si: denies HI: denies VH/AH: hearing voices of neighbors, sees things on skin and other in the environment which he interprets as poisoned even when others can't see them Delusions: paranoid/persecutory delusions Insight/judgment: poor x 2. Memory/cog: alert, oriented x 3. Diagnostics Vital Signs (24Hr): Vital Signs - 24 hr 05/31/24 07:30 Temperature 98.4 F Pulse Rate 81 Respiratory Rate 14 Blood Pressure 115/77 Pulse Oximetry 99 Oxygen Delivery Method Room Air BMI result Body Mass Index 32.3 Labs 05/28/24 19:53 05/29/24 18:32 Labs: Laboratory Results - last 48 hr 05/31/24 09:37 Estimat Average Glucose 123 Hemoglobin A1c % 5.9 Triglycerides 71 Cholesterol 208 H LDL Cholesterol, Calc 124 H HDL Cholesterol 70 Medications Medications Current Medications Acetaminophen (Acetaminophen 325 Mg Tablet) 650 mg PO Q6H PRN PRN Reason: Headache/Pain, Scale 1-10 Al Hydroxide/Mg Hydroxide (Magnesium Hydrox/Alum Hydrox 30 Ml Oral.Susp) 30 ml PO Q6H PRN PRN Reason: Heartburn/Nausea Hydroxyzine HCl (Hydroxyzine Hcl 25 Mg Tablet) 25 mg PO Q6H PRN PRN Reason: mild anxiety Last Admin: 05/31/24 03:50 Dose: 25 mg Magnesium Hydroxide (Milk Of Magnesia 30 Ml Oral.Susp) 30 ml PO DAILY PRN PRN Reason: Constipation Last Admin: 05/30/24 08:39 Dose: 30 ml Melatonin (Melatonin 3 Mg Tablet) 3 mg PO BEDTIME [facility] Last Admin: 05/31/24 21:32 Dose: Not Given Nicotine (Nicotine 21 Mg Patch.Td24) 21 mg TRANSDERMA DAILY [facility] Last Admin: 05/31/24 09:48 Dose: Not Given Nicotine Polacrilex (Nicotine Polacrilex 2 Mg Gum) 4 mg BUCCAL Q2H PRN PRN Reason: Nicotine Cravings Risperidone (Risperidone 2 Mg Tablet) 2 mg PO BEDTIME [facility] Last Admin: 05/31/24 21:32 Dose: 2 mg Risperidone (Risperidone 1 Mg Tablet) 1 mg PO DAILY [facility] Last Admin: 05/31/24 09:47 Dose: 1 mg Sumatriptan Succinate (Sumatriptan Succinate 50 Mg Tablet) 50 mg PO DAILY PRN PRN Reason: Migraine Headache Trazodone HCl (Trazodone Hcl 50 Mg Tablet) 50 mg PO BEDTIME MRX1 PRN PRN Reason: Insomnia Vitamin D (Cholecalciferol (Vitamin D3) 25 Mcg Tablet) 50 mcg PO DAILY [facility] Last Admin: 05/31/24 09:46 Dose: 50 mcg Allergies Allergies Allergy/AdvReac Type Severity Reaction Status Date / Time No Known Allergies Allergy Verified 05/28/24 19:45 Assessment & Plan Assessment & Plan (1) Schizophrenia: Status: Acute Code(s): F20.9 - Schizophrenia, unspecified Plan Mr. Jewell is a 53 year-old male with hx of schizophrenia who was brought via EMS on sect 12a from senior living therapist due to increased paranoid delusions and report of homicidal ideation towards neighbors who he believes have been trying to hurt him for at least two years but recently he also feels harassment is getting worse. Utox negative. We discussed risks, benefits and alternative tretment options. He agreed to increase risperidone to 1mg po daily and 2mg po qhs. We did discussed that given limited of medication trials, especially as abilify and seroquel are not most effective antipsychotic medications, to be open to try different one if risperidone at higher doses not effective. PLAN 05/31 continue tx. Reason for continued inpatient stay Substantial Risk for: inability to function Time Spent With Patient Time: Total time managing care of this patient today ____ minutes.
[2024-06-01 07:30] VITALS: BP 126/77; PULSE 73; RESP 16; TEMP 36.4; O2SAT 98
[2024-06-01] MEDS: risperiDONE 1 MG TABLET PO (09:08)
[2024-06-01] MEDS: guaiFENesin LA 600 MG TAB.ER.12H PO ×2 (09:08→21:42)
[2024-06-01] MEDS: Cholecalciferol (Vitamin D3) 25 MCG TABLET 50 MCG PO (09:08)
[2024-06-01 19:34] VITALS: BP 135/88; PULSE 90; RESP 16; TEMP 36.7; O2SAT 99
--- NOTE | 2024-06-01 20:36 | P.PNPSI_ITS ---
Subjective Subjective Date of Service: 06/01/24 Reason For Visit: crisis Subjective Notes: Conditional Voluntary and 3 Day Interim History: pt slept most of the night. He reports he thinks risperidone may have perforated his brain. He reports he hears voices here, he is not fully forthcoming, worried about having to stay longer. He is suspicious about the medication, especially new dose. He denies SI/HI. He reports he has to leave soon but think this is more related to increasingly getting more paranoid on the unit than actually feeling better. He agreed to continue medication at current dose. Review of Systems Review of Systems He reports headache. No SOB, NO chest pain. No constipation or diarrhea, nor abdominal pain. Yes all other systems are reviewed and are negative Constitutional: Denies fatigue and Denies fever(s) Cardiovascular: Denies chest pain and Denies dyspnea Respiratory: Denies cough and Denies dyspnea Gastrointestinal: Denies abdominal pain Endocrine: Denies fatigue Mental Status Exam Mental Status Exam Narrative: Appearance: wearing hospital gown, fair hygiene, in NAD Behavior: cooperative, initially guarded Psychomotor: no agitation or retardation noted Speech: clear, normal rate/rhythm/volume, spontaneous TP: linear TC: paranoid delusions Mood: better Affect: suspicious Si: denies HI: denies VH/AH: hearing voices of neighbors, sees things on skin and other in the environment which he interprets as poisoned even when others can't see them Delusions: paranoid/persecutory delusions Insight/judgment: poor x 2. Memory/cog: alert, oriented x 3. Diagnostics Vital Signs (24Hr): Vital Signs - 24 hr 06/01/24 07:30 Temperature 97.6 F Pulse Rate 73 Respiratory Rate 16 Blood Pressure 126/77 Pulse Oximetry 98 Oxygen Delivery Method Room Air BMI result Body Mass Index 32.3 Labs 05/28/24 19:53 05/29/24 18:32 Labs: Laboratory Results - last 48 hr 05/31/24 09:37 Estimat Average Glucose 123 Hemoglobin A1c % 5.9 Triglycerides 71 Cholesterol 208 H LDL Cholesterol, Calc 124 H HDL Cholesterol 70 Medications Medications Current Medications Acetaminophen (Acetaminophen 325 Mg Tablet) 650 mg PO Q6H PRN PRN Reason: Headache/Pain, Scale 1-10 Al Hydroxide/Mg Hydroxide (Magnesium Hydrox/Alum Hydrox 30 Ml Oral.Susp) 30 ml PO Q6H PRN PRN Reason: Heartburn/Nausea Fluticasone Propionate (Fluticasone Propionate Nasal 16 Gm [place]) 1 spray NOSTRIL-B DAILY [facility] Last Admin: 06/01/24 09:12 Dose: Not Given Guaifenesin (Guaifenesin La 600 Mg Tab.Er.12h) 600 mg PO BID [facility] Last Admin: 06/01/24 09:08 Dose: 600 mg Hydroxyzine HCl (Hydroxyzine Hcl 25 Mg Tablet) 25 mg PO Q6H PRN PRN Reason: mild anxiety Last Admin: 05/31/24 03:50 Dose: 25 mg Magnesium Hydroxide (Milk Of Magnesia 30 Ml Oral.Susp) 30 ml PO DAILY PRN PRN Reason: Constipation Last Admin: 05/30/24 08:39 Dose: 30 ml Melatonin (Melatonin 3 Mg Tablet) 3 mg PO BEDTIME [facility] Last Admin: 05/31/24 21:32 Dose: Not Given Nicotine (Nicotine 21 Mg Patch.Td24) 21 mg TRANSDERMA DAILY [facility] Last Admin: 06/01/24 09:11 Dose: Not Given Nicotine Polacrilex (Nicotine Polacrilex 2 Mg Gum) 4 mg BUCCAL Q2H PRN PRN Reason: Nicotine Cravings Risperidone (Risperidone 2 Mg Tablet) 2 mg PO BEDTIME [facility] Last Admin: 05/31/24 21:32 Dose: 2 mg Risperidone (Risperidone 1 Mg Tablet) 1 mg PO DAILY [facility] Last Admin: 06/01/24 09:08 Dose: 1 mg Sumatriptan Succinate (Sumatriptan Succinate 50 Mg Tablet) 50 mg PO DAILY PRN PRN Reason: Migraine Headache Trazodone HCl (Trazodone Hcl 50 Mg Tablet) 50 mg PO BEDTIME MRX1 PRN PRN Reason: Insomnia Vitamin D (Cholecalciferol (Vitamin D3) 25 Mcg Tablet) 50 mcg PO DAILY [facility] Last Admin: 06/01/24 09:08 Dose: 50 mcg Allergies Allergies Allergy/AdvReac Type Severity Reaction Status Date / Time No Known Allergies Allergy Verified 05/28/24 19:45 Assessment & Plan Assessment & Plan (1) Schizophrenia: Status: Acute Code(s): F20.9 - Schizophrenia, unspecified Plan Mr. Jewell is a 53 year-old male with hx of schizophrenia who was brought via EMS on sect 12a from terminal supervisor therapist due to increased paranoid delusions and report of homicidal ideation towards neighbors who he believes have been trying to hurt him for at least two years but recently he also feels harassment is getting worse. Utox negative. We discussed risks, benefits and alternative tretment options. He agreed to increase risperidone to 1mg po daily and 2mg po qhs. We did discussed that given limited of medication trials, especially as abilify and seroquel are not most effective antipsychotic medications, to be open to try different one if risperidone at higher doses not effective. PLAN 06/01 continue tx. encourage him to stay. He denies SI/HI. pleasant on approach otherwise. Reason for continued inpatient stay Substantial Risk for: inability to function Time Spent With Patient Time: Total time managing care of this patient today ____ minutes.
[2024-06-01] MEDS: risperiDONE 2 MG TABLET PO (21:42)
[2024-06-02 07:50] VITALS: BP 104/70; PULSE 68; RESP 16; TEMP 36.4; O2SAT 99
[2024-06-02] MEDS: Fluticasone Propionate Nasal 16 GM SPRAY 1 SPRAY NOSTRIL-B (08:45)
[2024-06-02] MEDS: guaiFENesin LA 600 MG TAB.ER.12H PO ×2 (08:46→22:22)
[2024-06-02] MEDS: Cholecalciferol (Vitamin D3) 25 MCG TABLET 50 MCG PO (08:47)
[2024-06-02] MEDS: risperiDONE 1 MG TABLET PO (08:48)
--- NOTE | 2024-06-02 11:15 | HO.PSYCHPN ---
Subjective Subjective Date of Service: 06/02/24 Reason For Visit: crisis Interim History: Met with patient; discussed with team; reviewed chart Patient reviewed history with real estate underwriter: Patient shares that he has been having AH since 2011; he 1st told anyone about in 2016. Patient reports he was started by his outpatient doctor, Dr. King on Risperdal 1 mg p.r.n. back in October 2023 At psychiatric hospitalization in February Risperdal dose was increased to 1 mg b.i.d.; he said he was hospitalized since he was not handling AH of his neighbors well, becoming very emotional and having trouble focusing Patient said with Risperdal 1 mg b.i.d. things were better for few weeks but then AH again started coming through the outlets and light fixtures; patient says his neighbors are listening to his psychotherapy sessions which he knows because he will over hear them say comments about it; he has never seen anyone say anything but hears it through the wall. Knows other people do not believe that this is actually happening but agrees with Risperdal since it helps him cope with it. Patient wants to remain on increased Risperdal dose now and see how it goes. Denies any SI or HI at all. Mental Status Exam Mental Status Exam Narrative: Pt is alert and oriented; behavior is cooperative, friendly and calm; patient is not in distress; dressed in casual attire with unkempt hair but adequate hygiene; mood is described as ok and affect congruent; eye contact appropriate; Speech is normal rate, volume and prosody and not pressured; no psychomotor agitation/retardation present; thought process is organized and goal directed; Thought content is on delusional ideas of neighbors spying on him; denies any SI/HI. Denies AVH on the unit; endorses AH is only ever present when he is in his apartment. Patients insight and judgment impaired but likely at baseline and adequate Diagnostics Vital Signs (24Hr): Vital Signs - 24 hr 06/01/24 19:34 06/02/24 07:50 Temperature 98.0 F 97.6 F Pulse Rate 90 68 Respiratory Rate 16 16 Blood Pressure 135/88 104/70 Pulse Oximetry 99 99 Oxygen Delivery Method Room Air Room Air BMI result Body Mass Index 32.3 Labs 05/28/24 19:53 05/29/24 18:32 Medications Medications Current Medications Acetaminophen (Acetaminophen 325 Mg Tablet) 650 mg PO Q6H PRN PRN Reason: Headache/Pain, Scale 1-10 Al Hydroxide/Mg Hydroxide (Magnesium Hydrox/Alum Hydrox 30 Ml Oral.Susp) 30 ml PO Q6H PRN PRN Reason: Heartburn/Nausea Fluticasone Propionate (Fluticasone Propionate Nasal 16 Gm [place]) 1 spray NOSTRIL-B DAILY [facility] Last Admin: 06/02/24 08:45 Dose: 1 spray Guaifenesin (Guaifenesin La 600 Mg Tab.Er.12h) 600 mg PO BID [facility] Last Admin: 06/02/24 08:46 Dose: 600 mg Hydroxyzine HCl (Hydroxyzine Hcl 25 Mg Tablet) 25 mg PO Q6H PRN PRN Reason: mild anxiety Last Admin: 05/31/24 03:50 Dose: 25 mg Magnesium Hydroxide (Milk Of Magnesia 30 Ml Oral.Susp) 30 ml PO DAILY PRN PRN Reason: Constipation Last Admin: 05/30/24 08:39 Dose: 30 ml Melatonin (Melatonin 3 Mg Tablet) 3 mg PO BEDTIME [facility] Last Admin: 06/01/24 21:41 Dose: Not Given Nicotine (Nicotine 21 Mg Patch.Td24) 21 mg TRANSDERMA DAILY [facility] Last Admin: 06/02/24 09:16 Dose: Not Given Nicotine Polacrilex (Nicotine Polacrilex 2 Mg Gum) 4 mg BUCCAL Q2H PRN PRN Reason: Nicotine Cravings Risperidone (Risperidone 2 Mg Tablet) 2 mg PO BEDTIME [facility] Last Admin: 06/01/24 21:42 Dose: 2 mg Risperidone (Risperidone 1 Mg Tablet) 1 mg PO DAILY [facility] Last Admin: 06/02/24 08:48 Dose: 1 mg Sumatriptan Succinate (Sumatriptan Succinate 50 Mg Tablet) 50 mg PO DAILY PRN PRN Reason: Migraine Headache Trazodone HCl (Trazodone Hcl 50 Mg Tablet) 50 mg PO BEDTIME MRX1 PRN PRN Reason: Insomnia Vitamin D (Cholecalciferol (Vitamin D3) 25 Mcg Tablet) 50 mcg PO DAILY [facility] Last Admin: 06/02/24 08:47 Dose: 50 mcg Allergies Allergies Allergy/AdvReac Type Severity Reaction Status Date / Time No Known Allergies Allergy Verified 05/28/24 19:45 Assessment & Plan Assessment & Plan (1) Schizophrenia: Status: Acute Code(s): F20.9 - Schizophrenia, unspecified Plan Mr. Jewell is a 53 year-old male with hx of schizophrenia who was brought via EMS on sect 12a from shelter therapist due to increased paranoid delusions and report of homicidal ideation towards neighbors who he believes have been trying to hurt him for at least two years but recently he also feels harassment is getting worse. Utox negative. We discussed risks, benefits and alternative tretment options. He agreed to increase risperidone to 1mg po daily and 2mg po qhs. We did discussed that given limited of medication trials, especially as abilify and seroquel are not most effective antipsychotic medications, to be open to try different one if risperidone at higher doses not effective. 06/01 continue tx. encourage him to stay. He denies SI/HI. pleasant on approach otherwise. 06/02 Patient reviewed history with real estate underwriter: Patient shares that he has been having AH since 2011; he 1st told anyone about in 2016. Patient reports he was started by his outpatient doctor, Dr. King on Risperdal 1 mg p.r.n. back in October 2023 At psychiatric hospitalization in February Risperdal dose was increased to 1 mg b.i.d.; he said he was hospitalized since he was not handling AH of his neighbors well, becoming very emotional and having trouble focusing Patient said with Risperdal 1 mg b.i.d. things were better for few weeks but then AH again started coming through the outlets and light fixtures; patient says his neighbors are listening to his psychotherapy sessions which he knows because he will over hear them say comments about it; he has never seen anyone say anything but hears it through the wall. Knows other people do not believe that this is actually happening but agrees with Risperdal since it helps him cope with it. Patient wants to remain on increased Risperdal dose now and see how it goes. Denies any SI or HI at all. Patient has remained in good behavioral and impulse control throughout his time in the unit; he is organized in speech and behavior and without any SI or HI at all. Patient has good rapport with outpatient provider and feels comfortable following up with him as an outpatient if increased Risperdal needs adjustment Plan: Three day notice Continue Risperdal 1 mg in the morning; 2 mg q.h.s. increased from 1 mg b.i.d. Patient educated on: diagnosis, medication risk/benefits and therapeutic strategies Informed Consent: understands, does not understand and further education needed Reason for continued inpatient stay Substantial Risk for: stable for discharge, rapid decompensation and med/psych decompensation Time Spent With Patient Time: Total time managing care of this patient today ____ minutes.
[2024-06-02 19:15] VITALS: BP 128/80; PULSE 89; RESP 16; TEMP 36.5; O2SAT 99
[2024-06-02] MEDS: risperiDONE 2 MG TABLET PO (22:22)
[2024-06-03 07:48] VITALS: BP 117/74; PULSE 72; RESP 16; TEMP 36.6; O2SAT 98
[2024-06-03] MEDS: guaiFENesin LA 600 MG TAB.ER.12H PO ×2 (08:12→21:17)
[2024-06-03] MEDS: risperiDONE 1 MG TABLET PO (08:12)
[2024-06-03] MEDS: Cholecalciferol (Vitamin D3) 25 MCG TABLET 50 MCG PO (08:12)
[2024-06-03] MEDS: Fluticasone Propionate Nasal 16 GM SPRAY 1 SPRAY NOSTRIL-B (08:14)
--- NOTE | 2024-06-03 12:28 | HO.PSYCHPN ---
Subjective Subjective Date of Service: 06/03/24 Reason For Visit: crisis Interim History: Met with patient; discussed with team Patient remains stable and feels good about discharging tomorrow when his 3 day notice is due. Remains in good behavioral and impulse control, engaged in treatment and polite and appropriate with peers and staff. Patient shared with senior technical writer that for a long time, decades he has had nightmares/parasomnia. Although he typically does not like medication, he agrees to try clonidine tonight after reviewing risks/side effects. Mental Status Exam Mental Status Exam Narrative: Pt is alert and oriented; behavior is cooperative, friendly and calm; patient is not in distress; dressed in casual attire with unkempt hair but adequate hygiene; mood is described as ok and affect congruent; eye contact appropriate; Speech is normal rate, volume and prosody and not pressured; no psychomotor agitation/retardation present; thought process is organized and goal directed; Thought content is on delusional ideas of neighbors spying on him; denies any SI/HI. Denies AVH on the unit; endorses AH is only ever present when he is in his apartment. Patients insight and judgment impaired but at baseline and adequate Diagnostics Vital Signs (24Hr): Vital Signs - 24 hr 06/02/24 19:15 06/03/24 07:48 Temperature 97.7 F 97.8 F Pulse Rate 89 72 Respiratory Rate 16 16 Blood Pressure 128/80 117/74 Pulse Oximetry 99 98 Oxygen Delivery Method Room Air Room Air BMI result Body Mass Index 32.3 Labs 05/28/24 19:53 05/29/24 18:32 Medications Medications Current Medications Acetaminophen (Acetaminophen 325 Mg Tablet) 650 mg PO Q6H PRN PRN Reason: Headache/Pain, Scale 1-10 Al Hydroxide/Mg Hydroxide (Magnesium Hydrox/Alum Hydrox 30 Ml Oral.Susp) 30 ml PO Q6H PRN PRN Reason: Heartburn/Nausea Fluticasone Propionate (Fluticasone Propionate Nasal 16 Gm [place]) 1 spray NOSTRIL-B DAILY [facility] Last Admin: 06/03/24 08:14 Dose: 1 spray Guaifenesin (Guaifenesin La 600 Mg Tab.Er.12h) 600 mg PO BID [facility] Last Admin: 06/03/24 08:12 Dose: 600 mg Hydroxyzine HCl (Hydroxyzine Hcl 25 Mg Tablet) 25 mg PO Q6H PRN PRN Reason: mild anxiety Last Admin: 05/31/24 03:50 Dose: 25 mg Magnesium Hydroxide (Milk Of Magnesia 30 Ml Oral.Susp) 30 ml PO DAILY PRN PRN Reason: Constipation Last Admin: 05/30/24 08:39 Dose: 30 ml Melatonin (Melatonin 3 Mg Tablet) 3 mg PO BEDTIME PRN PRN Reason: insomnia Nicotine (Nicotine 21 Mg Patch.Td24) 21 mg TRANSDERMA DAILY PRN PRN Reason: nicotine cessation Nicotine Polacrilex (Nicotine Polacrilex 2 Mg Gum) 4 mg BUCCAL Q2H PRN PRN Reason: Nicotine Cravings Risperidone (Risperidone 2 Mg Tablet) 2 mg PO BEDTIME [facility] Last Admin: 06/02/24 22:22 Dose: 2 mg Risperidone (Risperidone 1 Mg Tablet) 1 mg PO DAILY [facility] Last Admin: 06/03/24 08:12 Dose: 1 mg Sumatriptan Succinate (Sumatriptan Succinate 50 Mg Tablet) 50 mg PO DAILY PRN PRN Reason: Migraine Headache Trazodone HCl (Trazodone Hcl 50 Mg Tablet) 50 mg PO BEDTIME MRX1 PRN PRN Reason: Insomnia Vitamin D (Cholecalciferol (Vitamin D3) 25 Mcg Tablet) 50 mcg PO DAILY [facility] Last Admin: 06/03/24 08:12 Dose: 50 mcg Allergies Allergies Allergy/AdvReac Type Severity Reaction Status Date / Time No Known Allergies Allergy Verified 05/28/24 19:45 Assessment & Plan Assessment & Plan (1) Schizophrenia: Status: Acute Code(s): F20.9 - Schizophrenia, unspecified Plan Mr. Jewell is a 53 year-old male with hx of schizophrenia who was brought via EMS on sect 12a from terminal manager therapist due to increased paranoid delusions and report of homicidal ideation towards neighbors who he believes have been trying to hurt him for at least two years but recently he also feels harassment is getting worse. Utox negative. We discussed risks, benefits and alternative tretment options. He agreed to increase risperidone to 1mg po daily and 2mg po qhs. We did discussed that given limited of medication trials, especially as abilify and seroquel are not most effective antipsychotic medications, to be open to try different one if risperidone at higher doses not effective. 06/02 Patient reviewed history with senior technical writer: Patient shares that he has been having AH since 2011; he 1st told anyone about in 2017. Patient reports he was started by his outpatient doctor, Dr. King on Risperdal 1 mg p.r.n. back in October 2023 At psychiatric hospitalization in February Risperdal dose was increased to 1 mg b.i.d.; he said he was hospitalized since he was not handling AH of his neighbors well, becoming very emotional and having trouble focusing Patient said with Risperdal 1 mg b.i.d. things were better for few weeks but then AH again started coming through the outlets and light fixtures; patient says his neighbors are listening to his psychotherapy sessions which he knows because he will over hear them say comments about it; he has never seen anyone say anything but hears it through the wall. Knows other people do not believe that this is actually happening but agrees with Risperdal since it helps him cope with it. Patient wants to remain on increased Risperdal dose now and see how it goes. Denies any SI or HI at all. 06/03 Patient remains stable and feels good about discharging tomorrow when his 3 day notice is due. Remains in good behavioral and impulse control, engaged in treatment and polite and appropriate with peers and staff. Patient shared with senior technical writer that for a long time, decades he has had nightmares/parasomnia. Although he typically does not like medication, he agrees to try clonidine tonight after reviewing risks/side effects. Patient has remained in good behavioral and impulse control throughout his time in the unit; he is organized in speech and behavior and without any SI or HI at all. Patient has good rapport with outpatient provider and feels comfortable following up with him as an outpatient if increased Risperdal needs adjustment. Patient is not in imminent risk for harm to self or others and appropriate to return to the community for treatment Plan: Three day notice Continue Risperdal 1 mg in the morning; 2 mg q.h.s. increased from 1 mg b.i.d. Clonidine 0.1 mg q.h.s. Patient educated on: diagnosis and medication risk/benefits Informed Consent: understands, does not understand and further education needed Reason for continued inpatient stay Substantial Risk for: stable for discharge Time Spent With Patient Time: Total time managing care of this patient today ____ minutes.
[2024-06-03] MEDS: Milk of Magnesia 30 ML ORAL.SUSP PO (13:54)
[2024-06-03 20:00] VITALS: BP 142/93; PULSE 90; RESP 16; TEMP 37.1; O2SAT 96
[2024-06-03] MEDS: hydrOXYzine HCL 25 MG TABLET PO (21:19)
[2024-06-03] MEDS: risperiDONE 2 MG TABLET PO (21:20)
[2024-06-03] MEDS: traZODone HCL 50 MG TABLET PO (21:27)
[2024-06-03 21:31] VITALS: BP 140/91
[2024-06-03] MEDS: cloNIDine HCL 0.1 MG TABLET PO (21:31)
[2024-06-04 07:30] VITALS: BP 109/71; PULSE 63; RESP 14; TEMP 36.4; O2SAT 99
[2024-06-04] MEDS: Fluticasone Propionate Nasal 16 GM SPRAY 1 SPRAY NOSTRIL-B (08:36)
[2024-06-04] MEDS: risperiDONE 1 MG TABLET PO (08:36)
[2024-06-04] MEDS: Cholecalciferol (Vitamin D3) 25 MCG TABLET 50 MCG PO (08:36)
[2024-06-04] MEDS: guaiFENesin LA 600 MG TAB.ER.12H PO (08:36)
--- NOTE | 2024-06-04 09:11 | PM.PSYDC ---
DS: Providers Provider Date of Service: 06/04/24 Date of admission: 05/29/24 12:59 Date of discharge: 06/04/24 Primary care physician: Des Saab MD Admitting clinician: Shima Acuña Attending physician on discharge: Pastor Jones DS: Diagnosis Discharge Diagnosis (1) Schizophrenia: Status: Acute DS: Medications Discharge Medications Home Medications: Home Medications ?Medication ?Instructions ?Recorded ?Confirmed cholecalciferol (vitamin D3) 50 50 mcg PO DAILY 05/28/24 05/28/24 mcg (2,000 unit) capsule melatonin 3 mg tablet 3 mg PO BEDTIME 05/28/24 05/28/24 Previous Rx's ?Medication ?Instructions ?Recorded clonidine HCl 0.1 mg tablet 0.1 mg PO BEDTIME PRN insomnia 30 06/04/24 days #30 tabs fluticasone propionate 50 1 spray intranasal DAILY PRN nasal 06/04/24 mcg/actuation nasal congestion 30 days #16 grams spray,suspension hydroxyzine HCl 25 mg tablet 25 mg PO Q6H PRN mild anxiety 30 06/04/24 days #60 tabs risperidone 1 mg tablet See Rx Instructions .Route 06/04/24 .COMPLEX 30 days #90 tabs Data Data Completed and Pending Completed studies during hospitalization [Text1]: 05/28/24 05/28/24 05/29/24 19:52 19:53 18:32 WBC 7.9 RBC 5.00 Hgb 13.8 L Hct 41.6 L MCV 83.2 MCH 27.6 MCHC 33.2 RDW 13.2 Plt Count 361 MPV 9.4 Immature Gran % (Auto) 0.3 Neut % (Auto) 49.8 Lymph % (Auto) 39.7 [place] % (Auto) 7.9 Eos % (Auto) 1.8 Baso % (Auto) 0.5 Lymph # (Auto) 3.1 [place] # (Auto) 0.6 Eos # (Auto) 0.1 Baso # (Auto) 0.0 Abs Immat Gran (auto) 0.02 Absolute Neuts (auto) 3.9 Absolute Nucleated RBC 0.000 Nucleated RBC % (auto) 0.0 Sodium 137 139 Potassium 3.9 4.1 Chloride 100 102 Carbon Dioxide 26 29 Anion Gap 15 12 BUN 13 10 Creatinine 0.87 0.87 Estim Creat Clear Calc 91.9 90.9 Estimated GFR > 60 > 60 Random Glucose 90 115 Estimat Average Glucose Hemoglobin A1c % Calcium 11.0 H D 11.2 H Magnesium 2.0 Total Bilirubin 0.3 0.3 AST 32 25 ALT 36 34 Alkaline Phosphatase 79 76 Total Protein 7.9 7.9 Albumin 4.7 4.6 Triglycerides Cholesterol LDL Cholesterol, Calc HDL Cholesterol Salicylates < 5.0 L Urine Opiates Screen Not Detected Ur Buprenorphine Scrn Not Detected Ur Oxycodone Screen Not Detected Urine Methadone Screen Not Detected Urine Fentanyl Screen Not Detected Acetaminophen < 3 Ur Barbiturates Screen Not Detected Ur Phencyclidine Scrn Not Detected Ur Amphetamines Screen Not Detected U Benzodiazepines Scrn Not Detected Urine Cocaine Screen Not Detected U Marijuana (THC) Screen Not Detected Ethyl Alcohol < 10 Influenza Type A (PCR) NEGATIVE Influenza Type B (PCR) NEGATIVE RSV RNA Qual (PCR) NEGATIVE SARS-CoV-2 RNA (RT-PCR) NEGATIVE 05/31/24 09:37 WBC RBC Hgb Hct MCV MCH MCHC RDW Plt Count MPV Immature Gran % (Auto) Neut % (Auto) Lymph % (Auto) [place] % (Auto) Eos % (Auto) Baso % (Auto) Lymph # (Auto) [place] # (Auto) Eos # (Auto) Baso # (Auto) Abs Immat Gran (auto) Absolute Neuts (auto) Absolute Nucleated RBC Nucleated RBC % (auto) Sodium Potassium Chloride Carbon Dioxide Anion Gap BUN Creatinine Estim Creat Clear Calc Estimated GFR Random Glucose Estimat Average Glucose 123 Hemoglobin A1c % 5.9 Calcium Magnesium Total Bilirubin AST ALT Alkaline Phosphatase Total Protein Albumin Triglycerides 71 Cholesterol 208 H LDL Cholesterol, Calc 124 H HDL Cholesterol 70 Salicylates Urine Opiates Screen Ur Buprenorphine Scrn Ur Oxycodone Screen Urine Methadone Screen Urine Fentanyl Screen Acetaminophen Ur Barbiturates Screen Ur Phencyclidine Scrn Ur Amphetamines Screen U Benzodiazepines Scrn Urine Cocaine Screen U Marijuana (THC) Screen Ethyl Alcohol Influenza Type A (PCR) Influenza Type B (PCR) RSV RNA Qual (PCR) SARS-CoV-2 RNA (RT-PCR) DS: Summary Time Spent with Patient Time attestation: Total time managing care of this patient today ____ minutes. Discharge Plan Discharge Anticipated Discharge Date/Time: 06/04/24 11:00 Patient Disposition: Home, Self-Care Discharge Diagnosis: Schizophrenia Referrals: Salvador Burgess (Therapy) [Other] - 06/04/24 12:00 pm (*Your appointment with Salvador is today at 12pm. Please reach out to her once you are discharged even if the appointment has already passed. She is aware that you may miss the appointment depending on transportation home. ) Dr. Lincoln King (Psychiatry) [Other] - 1 Week (*Please follow up with [facility] regarding your next appointment with your psychiatrist. ) Des Saab MD [Primary Care Provider] - 1 Week Discharge Medications: New hydroxyzine HCl 25 mg Tablet 25 mg PO Q6H PRN (Reason: mild anxiety) 30 Days Qty: 60 1RF fluticasone propionate 50 mcg/actuation [place],Suspension 1 spray intranasal DAILY PRN (Reason: nasal congestion) 30 Days Qty: 16 0RF clonidine HCl 0.1 mg Tablet 0.1 mg PO BEDTIME PRN (Reason: insomnia) 30 Days Qty: 30 0RF Protocol: Hold for SBP< HOLD for SBP < : 90 Continued melatonin 3 mg tablet 3 mg PO BEDTIME cholecalciferol (vitamin D3) 50 mcg (2,000 unit) capsule 50 mcg PO DAILY Changed risperidone 1 mg tablet See Rx Instructions .ROUTE .COMPLEX 30 Days Qty: 90 0RF Rx Instructions: take 1 tab in the morning and take 2 tabs at bedtime Discharge Orders: Discharge Order (Routine); Ordered 06/04/24 Ordered By: Pastor Jones Diet: Regular diet Activity on Discharge: As tolerated Stand Alone Forms: Patient Portal Discharge page Print Language: [place] Care Plan Goals: Maintain mood and safe behaviors Take medications as prescribed Practice coping skills Continue with outpatient providers and reach out to them as needed Health Concerns: Mood stability and behaviors Plan of Treatment: Follow up with your PCP, psychiatric provider and other outpatient providers regarding above concerns Take medications as prescribed Assessment: Risk assessment at time of discharge:? Patient was interviewed prior to discharge and found to be fully oriented and without any SI or HI. Patient has improved insight and judgment and wants to continue treatment. Patient is not in imminent risk of harm to self or others and has a safety plan that includes presenting to the closest ER or calling 911 if feeling unsafe.? Patient has been observed closely by nursing and unit staff throughout admission; patient has not engaged in any behaviors that suggest dangerousness to self or others and has demonstrated appropriate behaviors and impulse control
--- NOTE | 2024-06-04 11:40 | PC.NURSE ---
Patient easily engaged. Reports mood is stable, denies highs or lows, denies depression or sadness, denies SI/HI plan or intent. Reports feeling extremely anxious regarding discharge, I have a lot of things to do at home, I have bills due today . Denies A/V hallucinations, no overt psychosis or expressed delusions. Discharge paperwork reviewed with patient, reports understanding. Follow up appointments reviewed with patient, reports understanding. All medications reviewed with patient reports understanding. All belongings taken with patient. Crisis numbers provided to patient.
== END 2024-06-04 10:47 | disposition home or self-care (01) | DRG 885 ==
LOC: HO.ED 05-29 05:00 → HO.PADLT16 05-29 13:46
PROVIDERS: Physician Assistant Medical; Admitting Provider Registered Nurse; Emergency Provider Emergency Medicine; PCP Family Medicine; Visit Provider Psychiatry & Neurology Psychiatry
DX: F20.9 Schizophrenia, unspecified (principal); R45.850 Homicidal ideations; Z20.822 Contact with and (suspected) exposure to COVID-19; Z79.899 Other long term (current) drug therapy
CPT/HCPCS: 0241U; 36415; 80053; 80061; 80143; 80179; 80307; 83036; 83735; 85025; 93005; 99285; S9485

== ENCOUNTER → 2024-05-29 11:03 | Outpatient (BNV) | payer MEDICARE, MEDICAID, SELFPAY | PROVIDERS: Emergency Provider Emergency Medicine; PCP Family Medicine; Visit Provider Internal Medicine Cardiovascular Disease | DX: Z13.6 Encounter for screening for cardiovascular disorders (principal) | CPT/HCPCS: 93010 ==

== ENCOUNTER → 2024-05-29 12:59 | Outpatient (BNV) | payer MEDICARE, MEDICAID, SELFPAY | PROVIDERS: Admitting Provider Registered Nurse; Emergency Provider Emergency Medicine; PCP Family Medicine; Visit Provider Social Worker | DX: F20.0 Paranoid schizophrenia (principal) | CPT/HCPCS: 90792; 99232 ==